=== PATIENT | male | born 1990 | race Caucasian/White ===

== ENCOUNTER 2020-01-12 16:50 | Emergency (ER) | payer MEDICAID ==
[~2020-01-12] VITALS: Ht 182.9 cm; Wt 81.8 kg
[2020-01-12] MEDS ORDERED: acetaminophen 325mg tablet PO ONE (18:15)
--- NOTE | 2020-01-12 18:28 | NUR ---
Pt medicated per protocol for fever >101.0
--- NOTE | 2020-01-12 19:59 | NUR ---
Dr. Shukla is with the patient at this time.
[2020-01-12 20:10] VITALS: BP 104/77
[2020-01-12] MEDS ORDERED: METH4TAB81 PO (20:19)
== END 2020-01-12 20:25 | disposition home or self-care (01) ==
LOC: ER 16:51
DX: B34.9 Viral infection, unspecified (principal); R51.9 Headache, unspecified; R43.8 Other disturbances of smell and taste; R50.9 Fever, unspecified; R06.02 Shortness of breath; R19.7 Diarrhea, unspecified; Z20.828 Contact with and (suspected) exposure to other viral communicable diseases; F31.9 Bipolar disorder, unspecified; F17.200 Nicotine dependence, unspecified, uncomplicated; Z72.89 Other problems related to lifestyle; Z79.899 Other long term (current) drug therapy
CPT/HCPCS: 36415; 87635; 99284

== ENCOUNTER 2020-06-18 18:21 | Emergency (ER) | payer BC, MEDICAID ==
[~2020-06-18] VITALS: Ht 182.9 cm; Wt 85.0 kg
[~2020-06-18 18:21] MED LIST: LIDOcaine 1% W/epiNEPHrine 1:100,000 20ml vial ONE; METH4TAB81 PO
[2020-06-18 18:27] VITALS: BP 138/71
[2020-06-18] MEDS ORDERED: LIDOcaine 1% W/epiNEPHrine 1:200,000 10ml vial IJ ONE (18:55)
[2020-06-18] MEDS ORDERED: CEPH250T PO (19:05)
== END 2020-06-18 20:13 | disposition home or self-care (01) ==
LOC: ER 18:22
DX: S60.410A Abrasion of right index finger, initial encounter (principal); Z72.89 Other problems related to lifestyle; Z79.2 Long term (current) use of antibiotics; Z79.899 Other long term (current) drug therapy; Y93.89 Activity, other specified; Y92.89 Other specified places as the place of occurrence of the external cause; Y99.8 Other external cause status
CPT/HCPCS: 96374; 99283